=== PATIENT | female | born 1995 | race Caucasian/White ===

== ENCOUNTER 2023-08-27 23:44 | Emergency (ER) | payer SELFPAY ==
[~2023-08-27] VITALS: Ht 162.6 cm; Wt 65.8 kg
[2023-08-27 23:51] VITALS: BP 126/78; PULSE 114; RESP 16; TEMP 97.6; O2SAT 97
== END 2023-08-28 00:57 | disposition home or self-care (01) ==
LOC: MED 23:44
DX: Z02.89 Encounter for other administrative examinations (principal); V49.88XA Car occupant (driver) (passenger) injured in other specified transport accidents, initial encounter; Y93.89 Activity, other specified; Y92.89 Other specified places as the place of occurrence of the external cause; Y99.8 Other external cause status
CPT/HCPCS: 71045; 99283